=== PATIENT | female | born 1955 | race Caucasian/White ===

== ENCOUNTER 2022-08-27 18:57 | Emergency (ER) | payer MEDICARE, OTHER ==
[~2022-08-27] VITALS: Ht 162.6 cm; Wt 83.0 kg
--- NOTE | 2022-08-27 19:41 | NUR ---
TO ER BED 1. BIBFAM C/O FLUCTUATING BP, MORENO&NECK PAIN, STOMACH ACHE & NAUSEA X 1 WEEK. PT IS ALERT AND ORIENTED. RR EVEN AND NON LABORED. CONNECTED TO POX AND HEART MONITOR. AWAITING MD WHITE
--- NOTE | 2022-08-27 20:06 | NUR ---
PT SENT TO RADIOLOGY
[2022-08-27] MEDS ORDERED: IV NS 0.9% 1,000 ML BAG IV ONE (20:30)
--- NOTE | 2022-08-27 20:31 | NUR ---
iv line established at lac 20g, blood drawn, urine collected, sent to lab
[2022-08-27 20:40] LABS: BASOPHILS % (AUTO) 0.5 % (0.0-2.0); EOSINOPHILS % (AUTO) 1.3 % (0.0-6.0); HEMATOCRIT 38 % (33-45); HEMOGLOBIN 12.2 g/dL (11.5-14.8); LYMPHOCYTES # (AUTO) 2.4 K/uL (0.8-4.8); LYMPHOCYTES % (AUTO) 34.3 % (20.0-44.0); MEAN CORPUSCULAR HGB CONC 33 g/dl (31.0-36.0); MEAN CORPUSCULAR VOLUME 92 fL (82-100); MONOCYTES # (AUTO) 0.6 K/uL (0.1-1.30); MONOCYTES % (AUTO) 8.3 % (2.0-12.0); NEUTROPHILS # (AUTO) 3.8 K/uL (1.8-8.9); NEUTROPHILS % (AUTO) 55.6 % (43.0-81.0); PLATELET COUNT (AUTO) 236 K/uL (150-450); WHITE BLOOD COUNT (AUTO) 6.9 K/uL (4.3-11.0)
[2022-08-27 21:10] LABS: CALCIUM, SERUM 9.4 mg/dL (8.5-10.1); CARBON DIOXIDE 28 mmol/L (21-32); CHLORIDE 105 mmol/L (98-107); CREATININE 0.8 mg/dL (0.6-1.3); GLUCOSE 111 mg/dL (74-106); POTASSIUM 4.3 mmol/L (3.5-5.1); SODIUM SERUM 141 mmol/L (136-145); UREA NITROGEN, BLOOD 17 mg/dL (7-18)
[2022-08-27 21:17] LABS: ALANINE AMINOTRANSFERASE 36 U/L (12-78); ALBUMIN 3.6 g/dL (3.4-5.0); ALKALINE PHOSPHATASE 66 U/L (46-116); ASPARTATE AMINOTRANSFERASE 22 U/L (15-37); BILIRUBIN,DIRECT 0.1 mg/dL (0.0-0.2); BILIRUBIN,TOTAL 0.2 mg/dL (0.2-1.0); LIPASE 125 U/L (73-393)
[2022-08-27 21:30] VITALS: BP 130/80
[2022-08-27 21:50] LABS: BILIRUBIN,URINE NEGATIVE (NEGATIVE); COLOR,URINE YELLOW (YELLOW); LEUKOCYTE ESTERASE ,URINE 1+ (NEGATIVE); NITRITE, URINE NEGATIVE (NEGATIVE); PH,URINE 6.5 (5.0-8.0); PROTEIN,URINE NEGATIVE (NEGATIVE); UGLUCOSE NEGATIVE (NEGATIVE); UROBILINOGEN,URINE 0.2 EU/dL (0.2)
[2022-08-27 21:59] LABS: BACTERIA,URINE 1+ /HPF (None Seen)
[2022-08-27 22:00] LABS: MUCUS,URINE Many /LPF (None Seen)
[2022-08-27] MEDS ORDERED: CEPHALEXIN MONOHYDRATE 500 MG CAPSULE PO ONE ×2 (22:30→22:38)
[2022-08-27] MEDS ORDERED: IBUPROFEN 600 MG TABLET PO ONE (22:30)
[2022-08-27] MEDS ORDERED: MECLIZINE HCL 12.5 MG TABLET PO ONE (22:30)
[2022-08-27] MEDS ORDERED: HYDROCODONE/APAP 5/325MG TABLET PO ONE (22:30)
[2022-08-27] MEDS ORDERED: HYDROCODONE/APAP 5/325MG TABLET ONE (22:37)
[2022-08-27] MEDS ORDERED: MECLIZINE HCL 25 MG TABLET ONE (22:38)
[2022-08-27] MEDS ORDERED: IBUPROFEN 600 MG TABLET ONE (22:38)
[2022-08-27] MEDS ORDERED: MECLIZINE HCL 12.5 MG TABLET ONE (22:40)
[2022-08-27] MEDS ORDERED: IBUP-1955 PO (23:54)
[2022-08-27] MEDS ORDERED: MECL-159 PO (23:54)
[2022-08-27] MEDS ORDERED: CEPH500C2 PO (23:54)
[2022-08-27] MEDS ORDERED: CYCL10TA9 PO (23:54)
--- NOTE | 2022-08-28 00:06 | NUR ---
Patient discharged to home in stable condition. Written and verbal after care instructions given. Patient verbalizes understanding of instruction. IV access removed. pt went home with sister.
== END 2022-08-28 00:05 | disposition home or self-care (01) ==
LOC: ER 19:20
DX: R42 Dizziness and giddiness (principal); N39.0 Urinary tract infection, site not specified; I10 Essential (primary) hypertension
CPT/HCPCS: 99285; 72125; 96360; 71045; 93005; 70450; 85025; 80048; 87086; 83690; 80076; 81001; 36415; 84484; J8597; J7030 ×2